=== PATIENT | female | born 1995 | race Caucasian/White ===

== ENCOUNTER 2019-10-26 05:14 | Emergency (ER) | payer OTHER ==
[~2019-10-26] VITALS: Ht 165.1 cm; Wt 76.2 kg
[2019-10-26 09:00] VITALS: BP 128/84
[2019-10-26] MEDS ORDERED: TETANUS-DIPTH-ACEL PERTUSSIS 0.5ML SYRG IM ONE (09:45)
== END 2019-10-26 10:20 | disposition home or self-care (01) ==
LOC: ER 05:14
DX: S80.12XA Contusion of left lower leg, initial encounter (principal); S20.212A Contusion of left front wall of thorax, initial encounter; S60.512A Abrasion of left hand, initial encounter; M62.838 Other muscle spasm; M54.2 Cervicalgia; V43.52XA Car driver injured in collision with other type car in traffic accident, initial encounter; Y93.89 Activity, other specified; Y92.488 Other paved roadways as the place of occurrence of the external cause; Y99.8 Other external cause status
CPT/HCPCS: 70450; 72125; 73130; 73590; 90471; 90715